=== PATIENT | male | born 1960 | race Caucasian/White ===

== ENCOUNTER 2016-11-08 15:13 | Emergency (ER) | payer BC ==
[~2016-11-08] VITALS: Ht 190.5 cm; Wt 101.0 kg
[2016-11-08 15:14] VITALS: BP 144/72
== END 2016-11-08 15:50 | disposition home or self-care (01) ==
LOC: ED 15:44
DX: Z76.0 Encounter for issue of repeat prescription (principal); F90.9 Attention-deficit hyperactivity disorder, unspecified type; E78.5 Hyperlipidemia, unspecified
CPT/HCPCS: 99281

== ENCOUNTER 2019-02-09 17:56 | Emergency (ER) | payer BC ==
[~2019-02-09] VITALS: Ht 190.5 cm; Wt 108.0 kg
[2019-02-09 18:01] VITALS: BP 112/73
== END 2019-02-09 18:59 | disposition left against medical advice (07) ==
LOC: ED 18:53
DX: Z76.0 Encounter for issue of repeat prescription (principal); Z53.21 Procedure and treatment not carried out due to patient leaving prior to being seen by health care provider